=== PATIENT | female | born 1980 | race Hispanic/Latino ===

== ENCOUNTER 2023-01-27 15:22 | Outpatient (CLI) | payer OTHER ==
[2023-01-27 15:48] LABS: Hemoglobin 13.9 g/dL (12.0-15.5); Mean Corpuscular HGB CONC 33.7 g/dL (32.0-36.0); Mean Corpuscular Hemoglobin 32.7 pg (27.0-33.0); Mean Corpuscular Volume 97.2 fl (81.6-98.3); Mean Platelet Volume 9.5 fl (7.4-10.4); Platelet Count 279 10x3/uL (150-450); RBC Distribution Width 12.9 % (11.5-14.5); Red Blood Cell (RBC) Count 4.25 10x6/uL (3.90-5.03); White Blood Cell (WBC) Count 5.6 10x3/uL (3.5-10.5)
[2023-01-27 16:10] LABS: BHCG - Serum Negative (NEGATIVE); Pregs Control Background? CLEAR/WHITE (CLR/WHITE); Pregs Control Bar Appear? YES (CONTROL BAR)
== END 2023-01-27 15:23 | disposition home or self-care (01) ==
LOC: CSHLAB 15:22
PROVIDERS: ATTEND Obstetrics & Gynecology
DX: Z01.812 Encounter for preprocedural laboratory examination (principal); D25.9 Leiomyoma of uterus, unspecified; N92.0 Excessive and frequent menstruation with regular cycle; N94.6 Dysmenorrhea, unspecified
CPT/HCPCS: 84703; 85027; 86850; 86900; 86901

== ENCOUNTER 2023-02-02 07:37 | Observation (INO) | payer OTHER ==
[2023-01-27 15:48] LABS: Hemoglobin 13.9 g/dL (12.0-15.5); Mean Corpuscular HGB CONC 33.7 g/dL (32.0-36.0); Mean Corpuscular Hemoglobin 32.7 pg (27.0-33.0); Mean Corpuscular Volume 97.2 fl (81.6-98.3); Mean Platelet Volume 9.5 fl (7.4-10.4); Platelet Count 279 10x3/uL (150-450); RBC Distribution Width 12.9 % (11.5-14.5); Red Blood Cell (RBC) Count 4.25 10x6/uL (3.90-5.03); White Blood Cell (WBC) Count 5.6 10x3/uL (3.5-10.5)
[2023-01-27 16:10] LABS: BHCG - Serum Negative (NEGATIVE); Pregs Control Background? CLEAR/WHITE (CLR/WHITE); Pregs Control Bar Appear? YES (CONTROL BAR)
[2023-01-31 13:31] VITALS: BMI 25.2
[2023-02-02] MEDS ORDERED: Gabapentin 300 MG CAP ONE (07:46)
[2023-02-02] MEDS ORDERED: Famotidine/PF 20 mg/2ml Vial ONE (07:47)
[2023-02-02] MEDS ORDERED: CeleCOXIB 100 MG CAP PO SCH (08:00)
[2023-02-02] MEDS ORDERED: Levofloxacin 500 mg/D5W 100 ml Premix Bag ONE (08:30)
[2023-02-02] MEDS ORDERED: Midazolam HCl 2 mg/2 ml Vial ONE ×2 (08:33→08:54)
[2023-02-02] MEDS ORDERED: Lidocaine 1% PF 5 ML VIAL ONE (08:33)
[2023-02-02] MEDS ORDERED: PROPOFOL 20 ML ONE (08:33)
[2023-02-02] MEDS ORDERED: Fentanyl 250 MCG/5 ML VIAL ONE (08:33)
[2023-02-02] MEDS ORDERED: Glycopyrrolate 0.2 MG/ML 5 ML SYRINGE ONE (08:33)
[2023-02-02] MEDS ORDERED: Dexamethasone 20 MG/5 ML VIAL ONE (08:33)
[2023-02-02] MEDS ORDERED: Rocuronium Bromide 10 MG/ML (10ML VIAL) ONE (08:33)
[2023-02-02] MEDS ORDERED: Ondansetron PF 4 MG/2 ML Vial ONE ×2 (08:33→13:35)
[2023-02-02] MEDS ORDERED: Ketorolac Tromethamine 30 MG/ML VIAL ONE (08:34)
[2023-02-02] MEDS ORDERED: Bupivacaine HCl 0.5%/Epinephrine 1:200,000/PF 30 ml Vial ONE (09:19)
[2023-02-02] MEDS ORDERED: Clindamycin/D5W 900 mg/50 ml Premix Bag ONE (09:50)
[2023-02-02] MEDS ORDERED: Fentanyl 100 MCG/2 ML VIAL ONE ×3 (11:37→14:12)
[2023-02-02] MEDS ORDERED: Promethazine HCl 25 MG/ML VIAL ONE (14:12)
[2023-02-02] MEDS ORDERED: Scopolamine 1.5 mg/72 hour Patch ONE (14:52)
[2023-02-02] MEDS ORDERED: Morphine 4 MG/ML VIAL SLOW IVP PRN (15:30)
[2023-02-02] MEDS ORDERED: Morphine 2 MG/ML VIAL SLOW IVP PRN (15:30)
[2023-02-02] MEDS ORDERED: Ondansetron PF 4 MG/2 ML Vial IVP PRN (15:30)
[2023-02-02] MEDS: Dextrose 5%-Lactated Ringers 1,000 ML IV SCH ×2 (16:35→23:33)
[2023-02-02] MEDS: Ketorolac Tromethamine 30 MG/ML VIAL IVP SCH (18:27)
[2023-02-02] MEDS ORDERED: HYDROcodone/Acetaminophen 5/325 mg Tablet PO PRN (22:49)
[2023-02-02] MEDS: HYDROcodone/Acetaminophen 5/325 mg Tablet PO PRN (23:13)
[2023-02-03] MEDS: Ketorolac Tromethamine 30 MG/ML VIAL IVP SCH ×2 (00:26→06:52)
[2023-02-03 04:49] VITALS: TEMP 98.3
[2023-02-03 05:00] LABS: Hemoglobin 12.9 g/dL (12.0-15.5); Mean Corpuscular Hemoglobin 32.7 pg (27.0-33.0); Mean Corpuscular Volume 95.9 fl (81.6-98.3); Mean Platelet Volume 10.1 fl (7.4-10.4); Platelet Count 241 10x3/uL (150-450); RBC Distribution Width 12.6 % (11.5-14.5); Red Blood Cell (RBC) Count 3.95 10x6/uL (3.90-5.03); White Blood Cell (WBC) Count 11.6 10x3/uL (3.5-10.5)
[2023-02-03] MEDS: HYDROcodone/Acetaminophen 5/325 mg Tablet PO PRN ×2 (05:45→09:42)
[2023-02-03 07:50] VITALS: BP 98/62
[2023-02-03] MEDS: Dextrose 5%-Lactated Ringers 1,000 ML IV SCH (08:44)
[2023-02-03] MEDS ORDERED: [UNRECOGNIZED DRUG - MIXTURE] PO SCH (09:00)
[2023-02-03] MEDS ORDERED: Cyclobenzaprine 10 MG TAB PO SCH (09:00)
== END 2023-02-03 09:45 | disposition home or self-care (01) ==
LOC: CSHSDC 07:37 → CSHPED 15:33
PROVIDERS: ADMIT Obstetrics & Gynecology; ATTEND Obstetrics & Gynecology
PROC: 0UT94ZZ Resection of Uterus, Percutaneous Endoscopic Approach (ICD-10-PCS; principal; 2023-02-02)
PROC: 0UT74ZZ Resection of Bilateral Fallopian Tubes, Percutaneous Endoscopic Approach (ICD-10-PCS; 2023-02-02)
DX: D25.9 Leiomyoma of uterus, unspecified (principal); N80.03 Adenomyosis of the uterus; N87.9 Dysplasia of cervix uteri, unspecified; R11.2 Nausea with vomiting, unspecified; N83.8 Other noninflammatory disorders of ovary, fallopian tube and broad ligament; Z88.1 Allergy status to other antibiotic agents; Z79.899 Other long term (current) drug therapy; Z90.49 Acquired absence of other specified parts of digestive tract
CPT/HCPCS: 36415; 84703; 85027; 86850; 86900; 86901; 88307; 96374; 96376; C1776; G0378; J1100; J1885; J1956; J2250; J2405; J2550; J2704; J3010; J3490; S0028

== ENCOUNTER 2023-02-10 12:50 | Outpatient (CLI) | payer OTHER | END 2023-02-10 12:51 | disposition home or self-care (01) | LOC: CSHCT 12:50 | PROVIDERS: ATTEND Obstetrics & Gynecology | DX: G89.18 Other acute postprocedural pain (principal); Z90.710 Acquired absence of both cervix and uterus; J90 Pleural effusion, not elsewhere classified; N28.9 Disorder of kidney and ureter, unspecified | CPT/HCPCS: 74176 ==